=== PATIENT | female | born 1980 | race Caucasian/White ===

== ENCOUNTER → 2019-11-30 14:49 | Outpatient (CLI) | payer OTHER, SELFPAY ==
--- NOTE | ~2019-11-30 | MM_ITS ---
EXAMINATION: MM screening zuly BI w ilana HISTORY: Screening mammogram TECHNIQUE: Craniocaudal and mediolateral oblique 3-D tomosynthesis images were obtained and synthetic 2-D images were generated. Bilateral rotated lateral cc views. ..CAD analysis was submitted and inte rpreted. COMPARISON: 07/11/2018 bilateral digital screening mammogram BREAST PARENCHYMAL COMPOSITION: The breasts are extremely dense, which lowers the sensitivity of mamm ography. FINDINGS: There is no evidence of suspicious mass, calcification, or architectural distortion to sugg est malignancy in either breast. There has been no suspicious interval change. IMPRESSION: 1. No mammographic evidence of malignancy. 2. Recommend routine screening mammography in one year. BI-RADS Category 1: Negative Reviewed, dictated and finalized at location A.
== END ==
PROVIDERS: PCP Internal Medicine; Visit Provider Obstetrics & Gynecology
DX: Z12.31 Encounter for screening mammogram for malignant neoplasm of breast (principal)
CPT/HCPCS: 77063; 77067

== ENCOUNTER → 2020-12-03 09:35 | Outpatient (CLI) | payer OTHER, SELFPAY ==
--- NOTE | ~2020-12-03 | MM_ITS ---
EXAMINATION: MM screening zuly BI w ilana HISTORY: Screening mammogram TECHNIQUE: Craniocaudal and mediolateral oblique 3-D tomosynthesis images were obtained and synthetic 2-D images were generated. Bilateral rotated lateral cc views. CAD analysis was submitted and interp reted. COMPARISON: 11/30/2019, 07/11/2018 bilateral digital screening mammogram examinations BREAST PARENCHYMAL COMPOSITION: The breasts are extremely dense, which lowers the sensitivity of mamm ography. FINDINGS: There is no evidence of suspicious mass, calcification, or architectural distortion to sugg est malignancy in either breast. There has been no suspicious interval change. IMPRESSION: 1. No mammographic evidence of malignancy. 2. Recommend routine screening mammography in one year. BI-RADS Category 1: Negative Reviewed, dictated and finalized at location A.
== END ==
PROVIDERS: PCP Internal Medicine; Visit Provider Obstetrics & Gynecology
DX: Z12.31 Encounter for screening mammogram for malignant neoplasm of breast (principal)
CPT/HCPCS: 77063; 77067

== ENCOUNTER → 2021-12-11 15:04 | Outpatient (CLI) | payer OTHER, SELFPAY ==
--- NOTE | ~2021-12-11 | MM_ITS ---
EXAMINATION: MM screening zuly BI w ilana HISTORY: Screening mammogram TECHNIQUE: Craniocaudal and mediolateral oblique 3-D tomosynthesis images were obtained and synthetic 2-D images were generated. CAD analysis was submitted and interpreted. COMPARISON: 12/03/2020, 11/30/2019, 07/11/2018 bilateral screening mammogram examinations BREAST PARENCHYMAL COMPOSITION: The breasts are extremely dense, which lowers the sensitivity of mamm ography. FINDINGS: There is no evidence of suspicious mass, calcification, or architectural distortion to sugg est malignancy in either breast. There has been no suspicious interval change. IMPRESSION: 1. No mammographic evidence of malignancy. 2. Recommend routine screening mammography in one year. BI-RADS Category 1: Negative Reviewed, dictated and finalized at location A.
== END ==
PROVIDERS: PCP Internal Medicine; Visit Provider Obstetrics & Gynecology
DX: Z12.31 Encounter for screening mammogram for malignant neoplasm of breast (principal)
CPT/HCPCS: 77063; 77067

== ENCOUNTER → 2023-02-04 15:41 | Outpatient (CLI) | payer OTHER, SELFPAY ==
--- NOTE | ~2023-02-04 | MM_ITS ---
EXAMINATION: MM screening zuly BI w ilana HISTORY: Screening mammogram TECHNIQUE: Craniocaudal and mediolateral oblique 3-D tomosynthesis images were obtained and synthetic 2-D images were generated. CAD analysis was submitted and interpreted. COMPARISON: 12/11/2021, 12/03/2020, 11/30/2019 bilateral screening mammogram examinations BREAST PARENCHYMAL COMPOSITION: The breasts are extremely dense, which lowers the sensitivity of mamm ography. FINDINGS: There is no evidence of suspicious mass, calcification, or architectural distortion to sugg est malignancy in either breast. There has been no suspicious interval change. IMPRESSION: 1. No mammographic evidence of malignancy. 2. Recommend routine screening mammography in one year. The extremely dense stroma may obscure masses ; close correlation with physical examination, monthly patient breast self-examination are particular ly important. Supplemental ultrasound examination may be of benefit in this setting as well. BI-RADS Category 1: Negative Reviewed, dictated and finalized at location A. MASTER IMPRESSION: 1. No mammographic evidence of malignancy. 2. Recommend routine screening mammography in one year. The extremely dense str rubi may obscure masses; close correlation with physical examination, monthly pa tient breast self-examination are particularly important. Supplemental ultrasou nd examination may be of benefit in this setting as well. BI-RADS Category 1: Negative
== END ==
PROVIDERS: PCP Internal Medicine; Visit Provider Obstetrics & Gynecology
DX: Z12.31 Encounter for screening mammogram for malignant neoplasm of breast (principal)
CPT/HCPCS: 77063; 77067

== ENCOUNTER 2024-04-15 15:37 | Outpatient (CLI) | payer BC, SELFPAY ==
--- NOTE | ~2024-04-15 | MM_ITS ---
EXAMINATION: MM screening zuly BI w ilana HISTORY: Screening TECHNIQUE: Craniocaudal and mediolateral oblique 3-D tomosynthesis images were obtained and synthetic 2-D images were generated. CAD analysis was submitted and interpreted. COMPARISON: Comparison to multiple prior studies sequentially, with oldest reviewed study dated 07/11. BREAST PARENCHYMAL COMPOSITION: Dense: The breasts are extremely dense, which lowers the sensitivity of mammography. FINDINGS: There is no evidence of suspicious mass, calcification, or architectural distortion to sugg est malignancy in either breast. There has been no suspicious interval change. IMPRESSION: 1. No mammographic evidence of malignancy. 2. Recommend routine screening mammography in one year. 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
== END 2024-04-15 15:38 | disposition home or self-care (01) ==
LOC: MICIMG 15:39
PROVIDERS: PCP Internal Medicine; Visit Provider Obstetrics & Gynecology
DX: Z12.31 Encounter for screening mammogram for malignant neoplasm of breast (principal)
CPT/HCPCS: 77063; 77067

== ENCOUNTER 2024-10-19 14:01 | Outpatient (CLI) | payer BC, SELFPAY ==
--- NOTE | ~2024-10-19 | MR_ITS ---
MR breast BI wo/w con 10/22/2024 INDICATION:43 year old female with Dense breast tissue presents for further evaluation. TECHNIQUE: MRI of the breasts perform using standard protocol pre-and post IV contrast with the follo wing sequences: Axial T2 STIR, axial T1, axial vibrant T1 with fat suppression precontrast and multip hasic postcontrast. 12 cc MultiHance administered intravenously. COMPARISON: Baseline. FINDINGS: There is extremely dense fibroglandular tissue that demonstrates Symmetric Marked enhanceme nt. Right breast: There are no abnormalities on the precontrast sequences. No enhancing lesions followin g contrast administration. No areas of enhancement meeting threshold criteria on CAD analysis. No e vidence of signal abnormalities in the axillary or internal mammary node distributions. LEFT BREAST: No signal abnormalities on precontrast sequences. No enhancing lesions following contra st administration. No areas of enhancement meeting threshold criteria on CAD analysis. No evidence of signal abnormalities in the axillary or internal mammary node distributions.] IMPRESSION: 1: Right breast: Negative. No evidence of malignancy 2: Left breast: Negative. No evidence of malignancy. RECOMMENDATION: Annual screening bilateral mammography. Breast MRI can be obtained as clinically indicated. Reviewed, dictated and finalized at location B.
--- OUTSIDE RECORDS SUMMARY | 2024-10-19 14:14 | XMS_ITS | Referral Summary ---
Author Organization [facility] at the Medical Office Building Address [address] [place] [id number] Care Team Providers Care Continuous Conveyor Screen Drier Name Role Phone Daxa Curiel MD Primary Care Provider Allergies Active Allergy Reactions Criticality Noted Date Comments Nitrofurantoin Monohyd/M-Cryst Unknown 08/10 Penicillin V Potassium Unknown 08/10/2018 Medications multivitamin tabletIndication s:Vitamin Deficiency Prevention Take 1 tablet by mouth Active magnesium oxide 400 mg magnesium capsule Take by mouth Active acidophilus-pect in, citrus 100 million cell-10 mg capsule Take by mouth Active Active Problems Problem Noted Date Diagnosed Date Other chronic pain 04/21/2018 Immunizations Immunization Administration Dates Next Due Flucelvax Influenza Quad 01/01/2018,04/26/2017 Influenza, Quadrivalent, Laura l Culture-based MDCK, Preservative Free, Antibiotic Free, Intramuscular 01/02/2018 Influenza, Quadrivalent, Spl it, Preservative Free, Intramuscular 03/21/2021 Influenza, Unspecified 11/27/2023(Deferr ed: Patient Refused),12/17/2022(Deferred: Patient Refused),10/15/2022(Deferred: Patient Refused),03/20/2021(Deferred: Patient Refused) Social History Tobacco Use Types Packs/Day Years Used Date Smoking Tobacco: Never Smokeless Tobacco: Never Tobacco Cessation:Counseling Given: Not Answered Alcohol Use Standard Drinks/Week Comments Yes 0 (1 standard drink = 0.6 oz pur e alcohol) AUDIT-C Answer Date Recorded Q1: How often do you have a drink containing alc ohol? 2-4 times a month 02/06/2024 Q2: How many drinks containi ng alcohol do you have on a typical day when you are drinking? 3 or 4 02/06/2024 Q3: How often do you have si x or more drinks on one occasion? Less than monthly 02/06/2024 PHQ-2 Answer Date Recorded PHQ-2 Total Score (If total score is 3 or more points, staff should administer the PHQ-9) 0 10/17/2023 Personal Safety Answer Date Recorded Have you ever been in or are you currently in a harmful physical or emotional relationship or is someone making you feel afraid or unsafe? Denies 02/06/2024 Comments Unknown Sex and Gender Information Value Date Recorded Sex Assigned at Not on file Legal Sex Female 3:08 AM INSPECTOR CIRCUITRY NEGATIVE Gender Identity Not on file Sexual Orientation Not on file Last Filed Vital Signs Vital Sign Reading Time Taken Comments Blood Pressure 91/69 02/06/2024 10:10 AM INSPECTOR CIRCUITRY NEGATIVE Pulse 69 02/06/2024 10:20 AM INSPECTOR CIRCUITRY NEGATIVE Temperature 36.5 C (97.7 F) 02/06/2024 9:43 AM INSPECTOR CIRCUITRY NEGATIVE Respiratory Rate 17 02/06/2024 10:20 AM INSPECTOR CIRCUITRY NEGATIVE Oxygen Saturation 99% 02/06/2024 10:20 AM INSPECTOR CIRCUITRY NEGATIVE Inhaled Oxygen Concentration - - Weight 57.2 kg (126 lb) 02/06/2024 8:30 AM INSPECTOR CIRCUITRY NEGATIVE Height 170.2 cm (5' 7) 10/17/2023 8:15 AM CDT Body Mass Index 19.73 10/17/2023 8:15 AM CDT Plan of Treatment Not on file Procedures Procedure Name Priority Date/Time Associated Diagnosis Comments MAMMOGRAPHY Routine 04/15/2024 COLONOSCOPY 02/06/2024 9:08 AM INSPECTOR CIRCUITRY NEGATIVE PAP SMEAR WITH HPV Routine 10/08/2019 from Last 3 Months or Most Recently Relevant to Health Maintenance Results * MAMMOGRAPHY (04/15/2024) Mammography Normal us Historical Provider HEALTH MAINTENANCE Final Result * Colonoscopy (02/06/2024 9:08 AM INSPECTOR CIRCUITRY NEGATIVE) Anatomical Region Laterality Modality Other Narrative Procedure Note Winston Ibarra IV, MD - 02/06/2024 9:08 AM CST [facility] ENDOSCOPY Patient Name: Екатерина Paz Procedure Date: 02/06/2024 9:08 AM Date of : 1980 Admit Type: Outpatient Age: 43 Gender: Female Attending MD: Winston Ibarra Iv, Room: [facility] ENDOSCOPY ROOM 06 Note Status: Finalized Procedure: Colonoscopy Indications: Screening for colorectal malignant neoplasm Referring MD: Providers: Winston Ibarra Iv Medicines: See the other procedure note for documentation ofthe administered medications Complications: No immediate complications. Estimated Blood Loss: Estimated blood loss: none. Procedure: Pre-Anesthesia Assessment: - See the other procedure note for documentation of the pre-procedure assessment. The benefits, risks and alternatives of theprocedure and sedation were discussed and informed consentwas obtained. All questions were answered. Please referto the signed informed consent document in the medical record. The scope was passed under direct vision.The PCF-H180AL colonoscope was introduced through theanus and advanced to the terminal ileum, with identification of the appendiceal orifice and IC valve. The colonoscopy was performed without difficulty. The patient tolerated the procedurewell. The quality of the bowel preparation was good. The ileocecal valve, appendiceal orifice, and rectumwere photographed. Findings: The perianal and digital rectal examinations were normal. The entire examined colon appeared normal on direct and retroflexion views. Impression: - The entire examined colon is normal on direct and retroflexion views. - No specimens collected. Recommendation: - Discharge patient to home. - Resume previous diet. - Continue present medications. - Repeat colonoscopy in 10 years for screening purposes. Cameron Roberto. Winston Ibarra Iv, 02/06/2024 9:40:17 AM Number of Addenda: 0 Note Initiated On: 02/06/2024 9:08 AM Recognized by the [place] [employer] for promoting quality in endoscopy Winston Ibarra IV, MD ENDOSCOPY PROCEDURES F inal Result * HM PAP SMEAR WITH HPV (10/08/2019) 10/08/2019 Historical Provider HEALTH MAINTENANCE Final Result from Last 3 Months or Most Recently Relevant to Health Maintenance Insurance [facility] ACCESS CHOICE Care Teams Continuous Conveyor Screen Drier Relationship Specialty Start Date End Date Daxa Curiel MD PCP - General Internal Medicine 08/10/18
--- OUTSIDE RECORDS SUMMARY | 2024-10-19 14:14 | XMS_ITS | Clinical Summary ---
Author Organization [facility] at the Medical Office Building Address [address] [place] [id number] Care Team Providers Care Looper Fixer Name Role Phone Daxa Curiel MD Primary [...] Refused),12/17/2022(Deferred: Patient Refused),10/15/2022(Deferred: Patient Refused),03/20/2021(Deferred: Patient Refused) Surgical History Surgery Date Site/Laterality Comments WISDOM TOOTH EXTRACTION RHINOPLASTY 03/18/2003 - 03/17/2004 Medical History Medical History Date Comments PONV (postoperative nausea and vomiting) with rhinoplasty Family History Medical History Relation Name Comments Cancer Father Heart disease Father Relation Name Status Comments Father Mother Alive Sister Alive Social History Tobacco Use Types Packs/Day Years [...] on file Legal Sex 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 Gender Identity Not on file Sexual Orientation Not on file Obstetrics History Last Filed Vital Signs Vital Sign Reading Time Taken Comments Blood Pressure 91/69 02/06/2024 10:10 AM FIRE EQUIPMENT INSPECTOR HELPER Pulse 69 02/06/2024 10:20 AM FIRE EQUIPMENT INSPECTOR HELPER Temperature 36.5 C (97.7 F) 02/06/2024 9:43 AM FIRE EQUIPMENT INSPECTOR HELPER Respiratory Rate 17 02/06/2024 10:20 AM FIRE EQUIPMENT INSPECTOR HELPER Oxygen Saturation 99% 02/06/2024 10:20 AM FIRE EQUIPMENT INSPECTOR HELPER Inhaled Oxygen Concentration - - Weight 57.2 kg (126 lb) 02/06/2024 8:30 AM FIRE EQUIPMENT INSPECTOR HELPER Height 170.2 cm (5' 7) 10/17/2023 8:15 AM CDT Body Mass Index 19.73 10/17/2023 8:15 AM CDT Plan of Treatment Health Maintenance Due Date Last Done Comments Hepatitis C Screening 1980 DTaP/Tdap/Td Vaccine (1 - Tdap) 1989 Hepatitis B Screening 1996 Covid-19 Vaccine ( season) 2023 03/21/2021, 07/10/2020, 06/18/2020 Cervical Cancer Screening 10/07/2024 10/08/2019 Depression Screening 10/16/2024 10/17/2023, 10/15/2022, 10/03/2021, Additional history exists Regular Well Visit/Exam 18-64 10/16/2024 10/17/2023, 10/15/2022, 10/03/2021, Additional history exists Influenza Vaccine (#1) 2024 2, 01/02/2018, 01/01/2018, Additional history exists Breast Cancer Screening-Mammogram 04/15/2025 04/15/2024, 02/04/2023, 12/03/2020, Additional history exists Colon Cancer Screening-Colonoscopy 02/05/2034 02/06/2024 HPV Vaccines Aged Out No longer eligi ble based on patient's age to complete this topic Pneumococcal vaccine <65 Aged Out No longer eligible based on patient's age to complete this topic Procedures Procedure Name Priority Date/Time Associated Diagnosis Comments MAMMOGRAPHY Routine 04/15/2024 COLONOSCOPY 02/06/2024 9:08 AM FIRE EQUIPMENT INSPECTOR HELPER PAP SMEAR WITH HPV Routine 10/08/2019 from Last 3 Months or Most Recently Relevant to Health Maintenance Results * MAMMOGRAPHY (04/15/2024) Mammography Normal us Historical Provider MD HEALTH MAINTENANCE Final Result * Colonoscopy (02/06/2024 9:08 AM FIRE EQUIPMENT INSPECTOR HELPER) Anatomical Region Laterality Modality Other Narrative Procedure Note Winston Ibarra IV, MD - 02/06/2024 9:08 AM CST [facility] END[facility] Patient Name: Екатерина Paz Procedure Date: 02/06/2024 9:08 AM Date of : 1980 Admit Type: Outpatient Age: 43 Gender: Female Attending MD: Winston Ibarra Iv, Room: [facility] ENDOSCOPY ROOM 06 Note Status: Finalized Procedure: [...] On: 02/06/2024 9:08 AM Recognized by the [place] [employer] for promoting quality in endoscopy Winston Ibarra IV, MD ENDOSCOPY PROCEDURES F inal Result * HM PAP SMEAR WITH HPV (10/08/2019) 10/08/2019 Historical Provider HEALTH MAINTENANCE Final Result from Last 3 Months or Most Recently Relevant to Health Maintenance Insurance [facility] ACCESS CHOICE Care Teams Looper Fixer Relationship Specialty Start Date End Date Daxa Curiel MD PCP - General Internal Medicine 08/10/18
--- OUTSIDE RECORDS SUMMARY | 2024-10-19 14:14 | XMS_ITS | Clinical Summary ---
Author Organization [facility] Jackelyn [address] 2022 Address [address] [facility] [address] [place] [address] Phone Care Team Providers Care Vp Production Name Role Phone Unavailable Primary Care Provider Unavailabl e Social History Tobacco Use Types Packs/Day Years Used Date Smoking Tobacco: Never Assessed Comments Unknown Sex and Gender Information Value Date Recorded Sex Assigned at Not on file Legal Sex Female 9:19 AM CDT Gender Identity Not on file Sexual Orientation Not on file Plan of Treatment Health Maintenance Due Date Last Done Comments DTAP/TDAP/TD VACCINES (1 - Tdap) 1997 HEPATITIS B VACCINES (1 of 3 - 19+ 3-dose series) 1997 HPV/Cotest (21-29) 1999 CERVICAL CANCER SCREENING 2008 HPV/Cotest (30-65) 2008 PAP SMEAR 2008 BREAST CANCER SCREENING 2018 COLORECTAL SCREENING 2023 Colorectal Cancer Screening 2023 FIT-DNA Q 3 years 2023 FIT/FOBT Q 1 year 2023 Flex Sig/CT Colonography Q 5 years 2023 INFLUENZA VACCINE (#1) 2024 HPV VACCINES Aged Out No longer eligi ble based on patient's age to complete this topic Insurance [facility] [id number]
--- OUTSIDE RECORDS SUMMARY | 2024-10-19 14:14 | XMS_ITS | Clinical Summary ---
Author Organization [facility] Address [address] [place] [id number] Care Team Providers Care Senior Service Aide Name Role Phone Bhakti Caraballo MD Primary Care Provider [phone] Social History Tobacco Use Types Packs/Day Years Used Date Smoking Tobacco: Never Assessed Comments Unknown Sex and Gender Information Value Date Recorded Sex Assigned at Not on file Legal Sex Female 8:06 PM CDT Gender Identity Not on file Sexual Orientation Not on file Plan of Treatment Health Maintenance Due Date Last Done Comments Cervical Cancer Screening Pa p Smear (Age 30 to 64) Every 3 Years 1978 Colorectal Cancer Screening Colonoscopy (10 Years) 1978 Annual Physical 1981 Hepatitis C 1996 DTaP, Tdap and Td Vaccines ( 1 - Tdap) 1997 Hepatitis B Vaccines (1 of 3 - 19+ 3-dose series) 1997 Cervical Cancer Screening Pa p with HPV Testing (Age 30 to 64) Every 5 Years 2008 Cervical Cancer Screening with HPV 2008 Mammogram Screening 2018 COVID-19 Vaccine ( - 2023-2 5 season) 2023 Meningococcal B Vaccine Aged Out No l onger eligible based on patient's age to complete this topic Meningococcal Vaccine Aged Out No johnny dionisio eligible based on patient's age to complete this topic Pneumococcal Vaccine: Pediat rics (0 to 5 Years) and At-Risk Patients (6 to 49 Years) Aged Out No longer eligible b ased on patient's age to complete this topic RSV Immunizations Under 20 Months Aged Out No longer eligible based on patient's age to complete this topic Care Teams Senior Service Aide Relationship Specialty Start Date End Date Bhakti Caraballo MD [address] [place] [address] [place] [id number] PCP - General 09/11/15
--- OUTSIDE RECORDS SUMMARY | 2024-10-19 14:14 | XMS_ITS | Clinical Summary ---
Author Organization [facility] Care Team Providers Care Coutierier Name Role Phone Unavailable Primary Care Provider Unavailabl e Social History Tobacco Use Types Packs/Day Years Used Date Smoking Tobacco: Never Assessed Comments Unknown Sex and Gender Information Value Date Recorded Sex Assigned at Not on file Legal Sex Female 11:28 AM CDT Gender Identity Not on file Sexual Orientation Not on file Plan of Treatment Health Maintenance Due Date Last Done Comments Hepatitis C Virus (HCV) Screening 1980 TdaP Immunization 1978 Hepatitis B Immunization (1 of 3 - 19+ 3-dose series) 1997 Pap Smear 1999 Cervical Cancer Screening (CCS) 2008 HPV/Cotest 2008 Cologuard 2023 Colonoscopy 2023 Colorectal Cancer Screening 2023 Immunochemical Fecal Occult Blood 2023 SARS-COV-2 Immunization ( - season) 2023 07/10/2020, 06/18/2020 Influenza Immunization (#1) 11/16/202412/16, 04/26/2017 Respiratory Syncytial Virus (RSV) Immunization (Adult) (1 - 1-dose 75+ series) 2053 Human Papillomavirus (HPV) Immunization Aged Out No longer eligible b ased on patient's age to complete this topic Meningococcal Immunization (ACWY) Aged Out No longer eligible b ased on patient's age to complete this topic Pneumococcal Immunization Combined Aged Out No longer eligible b ased on patient's age to complete this topic Rotavirus Immunization Aged Out No lo nger eligible based on patient's age to complete this topic
== END 2024-10-19 14:02 | disposition home or self-care (01) ==
LOC: ANHIMG 14:03
PROVIDERS: PCP Internal Medicine; Visit Provider Surgery
DX: R92.343 Mammographic extreme density, bilateral breasts (principal); Z80.3 Family history of malignant neoplasm of breast
CPT/HCPCS: 77049; A9577; C8908